=== PATIENT | male | born 1935 | race African-American/Black ===

== ENCOUNTER 2020-08-04 08:06 | Emergency (ER) | payer OTHER ==
[~2020-08-04] VITALS: Ht 182.9 cm; Wt 68.0 kg
[2020-08-04] MEDS ORDERED: AMLODIPINE (08:11)
[2020-08-04] MEDS ORDERED: SODIUM CHLORIDE 0.9% 1,000 ML IV ONE (08:45)
[2020-08-04 09:58] LABS: HEMATOCRIT. 38.3 % (42.0-52.0); HEMOGLOBIN. 12.4 g/dL (14.0-18.0); MEAN CORPUSCULAR HEMOGLOBIN 31.8 pg (28.0-32.0); MEAN CORPUSCULAR VOLUME 98.7 fL (80.0-94.0); MEAN PLATELET VOLUME 7.2 fl (7.4-10.4); PLATELET 284 x1000/uL (130-400); RED BLOOD CELL COUNT 3.88 mill/uL (4.7-6.1); RED CELL DISTRIBUTION WIDTH 13.7 % (11.6-14.6)
[2020-08-04 10:06] LABS: CHLORIDE 109 mEq/L (98-107)
[2020-08-04 10:19] LABS: CLARITY URINE CLEAR (CLEAR); COLOR URINE YELLOW (YELLOW); KETONES URINE TRACE (NEGATIVE); LEUKOCYTE ESTERASE URINE NEGATIVE (NEGATIVE); NITRITE URINE NEGATIVE (NEGATIVE); OCCULT BLOOD URINE 1+ (NEGATIVE); PROTEIN URINE 1+ (NEGATIVE); SPECIFIC GRAVITY URINE 1.019 (1.005-1.030); UROBILINOGEN URINE 0.2 E.U./dL (0.2-1.0)
[2020-08-04 11:39] LABS: PLATELET ESTIMATE NORMAL
[2020-08-04 14:28] VITALS: BP 148/68
== END 2020-08-04 17:02 | disposition home or self-care (01) ==
LOC: ER 08:06
DX: R51.9 Headache, unspecified (principal); R11.0 Nausea; R53.81 Other malaise; I10 Essential (primary) hypertension; Z20.822 Contact with and (suspected) exposure to COVID-19
CPT/HCPCS: 36415; 70450; 71045; 80053; 81003; 85025; 85651; 87426; 93005; 96360; 96361; 99285; J7030